=== PATIENT | female | born 1985 | race Hispanic/Latino ===

== ENCOUNTER 2017-11-29 07:10 | Day surgery (SDC) | payer MEDICAID ==
[2017-11-26 15:35] VITALS: BP 120/69
[2017-11-26 15:46] LABS: EOSINOPHILS % (AUTO) 1.6 % (0.0-8.0); HEMATOCRIT 40.9 % (36-48); LYMPHOCYTES % (AUTO) 32.1 % (21.0-51.0); MEAN CORPUSCULAR HEMOGLOBIN 26.4 pg (27.0-33.0); MEAN CORPUSCULAR HGB CONC 33.1 g/dL (32.0-36.0); MEAN CORPUSCULAR VOLUME 79.9 fL (79-99); MONOCYTES % (AUTO) 7.7 % (3.0-13.0); NEUTROPHILS % (AUTO) 57.6 % (40.0-77.0); PLATELET COUNT (AUTO) 395 K/uL (130-400); RED BLOOD CELL COUNT(AUTO) 5.12 MIL/uL (4.00-5.50); RED CELL DISTRIBUTION WIDTH 14.2 % (11.0-15.5); WHITE BLOOD COUNT (AUTO) 9.8 K/uL (4.8-10.8)
[2017-11-26 15:55] LABS: CREATININE 0.8 mg/dL (0.5-1.5)
[2017-11-29] VITALS (20 sets, daily range): BP systolic 94–125; BP diastolic 53–79
[~2017-11-29] VITALS: Ht 158.8 cm; Wt 79.7 kg
[~2017-11-29 07:10] MED LIST: TYL3 PO
[2017-11-29] MEDS: CEFTRIAXONE SODIUM 1 GM IVP SCH ×2 (08:30→13:54)
[2017-11-29] MEDS: LACTATED RINGERS 1000ML 1,000 ML IV SCH ×2 (08:45→11:05)
[2017-11-29] MEDS ORDERED: DEXAMETHASONE SOD PHOSPHATE 10MG/ML 1ML VIAL ONE (10:19)
[2017-11-29] MEDS ORDERED: SUCCINYLCHOLINE 200MG/10ML SYR ONE (10:19)
[2017-11-29] MEDS ORDERED: ONDANSETRON HCL 4 MG/2 ML VIAL ONE (10:19)
[2017-11-29] MEDS ORDERED: GLYCOPYRROLATE 0.2 MG/ML 5 ML VIAL ONE (10:19)
[2017-11-29] MEDS ORDERED: NEOSTIGMINE METHYLSULFATE 1MG/ML IV ONE (10:19)
[2017-11-29] MEDS ORDERED: LIDOCAINE PF 2% 5ML ABBOJECT ONE (10:19)
[2017-11-29] MEDS ORDERED: FENTANYL CITRATE PF 50 MCG/1 ML 2ML VIAL ONE ×2 (10:20→11:30)
[2017-11-29] MEDS ORDERED: PROPOFOL 10 MG/ML 20ML VIAL IV ONE (10:20)
[2017-11-29] MEDS ORDERED: MIDAZOLAM HCL 1 MG/ML 2ML VIAL ONE (10:20)
[2017-11-29] MEDS ORDERED: MEPERIDINE-PF 25 MG/ML SYG ONE ×2 (12:43→12:54)
== END 2017-11-29 14:18 | disposition home or self-care (01) ==
LOC: DAH 07:10
PROVIDERS: ATTEND Surgery
DX: N20.0 Calculus of kidney (principal); E66.9 Obesity, unspecified; Z68.33 Body mass index [BMI] 33.0-33.9, adult; Z91.041 Radiographic dye allergy status; Z96.0 Presence of urogenital implants
CPT/HCPCS: 36415; 50590; 52310; 80048; 81025; 85025; 87088; 88300; A4218; A4358; J0330; J0696; J1100; J2001; J2175 ×2; J2250; J2405; J2704; J2710; J3010 ×2; J3490; J7120 ×2

== ENCOUNTER 2017-12-06 07:05 | Emergency (ER) | payer MEDICAID ==
[2017-12-06] MEDS ORDERED: ONDANSETRON HCL 4 MG/2 ML VIAL ONE (07:44)
[2017-12-06] MEDS ORDERED: KETOROLAC TROMETHAMINE 30MG/ML ONE (07:44)
[2017-12-06] MEDS ORDERED: SODIUM CHLORIDE 0.9% 1000ML 1,000 ML IV ONE (07:44)
[2017-12-06 07:47] LABS: APPEARANCE,URINE Clear (CLEAR); BILIRUBIN,URINE Negative (NEGATIVE); COLOR,URINE Yellow (YELLOW); GLUCOSE, URINE (UA) Negative (NEGATIVE); KETONES,URINE Negative (NEGATIVE); LEUKOCYTE ESTERASE ,URINE Trace (NEGATIVE); NITRATE,URINE Negative (NEGATIVE); OCCULT BLOOD,URINE Trace (NEGATIVE); PH,URINE 6.5 (5.0-8.0); PROTEIN,URINE Negative (NEGATIVE); UROBILINOGEN,URINE 0.2 mg/dL (0.2-1.0)
[2017-12-06 07:47] LABS: BASOPHILS % (AUTO) 0.4 % (0.0-5.0); EOSINOPHILS % (AUTO) 2.8 % (0.0-8.0); HEMATOCRIT 38.6 % (36-48); LYMPHOCYTES % (AUTO) 47.6 % (21.0-51.0); MEAN CORPUSCULAR HEMOGLOBIN 26.8 pg (27.0-33.0); MEAN CORPUSCULAR HGB CONC 33.4 g/dL (32.0-36.0); MEAN CORPUSCULAR VOLUME 80.3 fL (79-99); MONOCYTES % (AUTO) 8.6 % (3.0-13.0); NEUTROPHILS % (AUTO) 40.6 % (40.0-77.0); PLATELET COUNT (AUTO) 237 K/uL (130-400); RED BLOOD CELL COUNT(AUTO) 4.81 MIL/uL (4.00-5.50); RED CELL DISTRIBUTION WIDTH 15.1 % (11.0-15.5); WHITE BLOOD COUNT (AUTO) 7.2 K/uL (4.8-10.8)
[2017-12-06 07:55] LABS: CREATININE 0.6 mg/dL (0.5-1.5); POTASSIUM 3.7 mmol/L (3.5-5.1)
[2017-12-06 07:56] LABS: BACTERIA,URINE Rare /HPF (None Seen); SQUAMOUS EPITHELIAL CELL,UR Rare /LPF (0-2); WBC,URINE 0-1 /HPF (0-1)
[2017-12-06] MEDS ORDERED: MORPHINE SULFATE 2 MG/ML 1ML SYG ONE (09:25)
== END 2017-12-06 10:35 | disposition home or self-care (01) ==
LOC: EDH 07:05
DX: N20.0 Calculus of kidney (principal); Z87.442 Personal history of urinary calculi; Z91.041 Radiographic dye allergy status; Z91.013 Allergy to seafood
CPT/HCPCS: 36415; 76770; 80048; 81001; 81025; 85025; 87088; 96361; 96374; 96375; 99285; J1885; J2405; J7030

== ENCOUNTER 2017-12-06 10:49 | Day surgery (SDC) | payer MEDICAID ==
[~2017-12-06] VITALS: Ht 160 cm; Wt 79.9 kg
[2017-12-06] VITALS (14 sets, daily range): BP systolic 114–132; BP diastolic 60–80
[2017-12-06] MEDS ORDERED: LACTATED RINGERS 1000ML 1,000 ML IV ONE (12:32)
[2017-12-06] MEDS ORDERED: MIDAZOLAM HCL 1 MG/ML 2ML VIAL ONE (13:54)
[2017-12-06] MEDS ORDERED: PROPOFOL 10 MG/ML 20ML VIAL IV ONE (13:54)
[2017-12-06] MEDS ORDERED: ONDANSETRON HCL 4 MG/2 ML VIAL ONE (13:54)
[2017-12-06] MEDS ORDERED: NEOSTIGMINE METHYLSULFATE 1MG/ML IV ONE (13:54)
[2017-12-06] MEDS ORDERED: LIDOCAINE PF 2% 5ML ABBOJECT ONE (13:54)
[2017-12-06] MEDS ORDERED: SUCCINYLCHOLINE 200MG/10ML SYR ONE (13:54)
[2017-12-06] MEDS ORDERED: DEXAMETHASONE SOD PHOSPHATE 10MG/ML 1ML VIAL ONE (13:54)
[2017-12-06] MEDS ORDERED: FENTANYL CITRATE PF 50 MCG/1 ML 2ML VIAL ONE (13:55)
[2017-12-06] MEDS ORDERED: FUROSEMIDE 10 MG/ML 2ML VIAL IV SCH (14:30)
[2017-12-06] MEDS ORDERED: MEPERIDINE-PF 25 MG/ML SYG ONE (15:06)
[2017-12-06] MEDS ORDERED: KETOROLAC TROMETHAMINE 30MG/ML ONE (15:26)
== END 2017-12-06 16:30 | disposition home or self-care (01) ==
LOC: DAH 10:49
PROVIDERS: ATTEND Surgery
DX: N20.0 Calculus of kidney (principal); I10 Essential (primary) hypertension; Z68.33 Body mass index [BMI] 33.0-33.9, adult; Z79.899 Other long term (current) drug therapy
CPT/HCPCS: 50590; 74018; J0330; J1100; J1885; J1940; J2001; J2175; J2250; J2405; J2704; J2710; J3010; J7120